=== PATIENT | female | born 1960 | race Caucasian/White ===

== ENCOUNTER 2019-07-13 10:16 | Emergency (ER) | payer OTHER, SELFPAY ==
[2019-07-13] VITALS (7 sets, daily range): BP systolic 115–158; BP diastolic 66–90; PULSE 53–62; RESP 11–16; TEMP 36.4; O2SAT 96–100; BMI 25.1
--- NOTE | 2019-07-13 10:39 | ED.NEUROSD ---
HPI - Neuro Symptoms/Deficit General Chief Complaint: Neuro Symptoms/Deficit Stated Complaint: headache/numbness rt fingers/dizzy/nausea x14 days Time Seen by Provider: 07/13/19 10:20 Source: patient Mode of arrival: Ambulatory Limitations: no limitations History of Present Illness HPI Narrative: 58F nonsmoker with history of hypothyroid presents with a chief complaint of 14 days of episodes of dizziness without any apparent provocation or palliation. She states her dizziness is more a sense that she is unsteady and with ambulation she feels like she is walking with a list. Additions the patient has some discomfort in the right side of her neck and occasional episodes of tingling in her 4th and 5th fingers. She denies any injury. She has had no fever chills and denies other neurologic symptoms such as blurred vision weakness or trouble with speech. 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 She states this feels different than her typical vertigo. She denies any recent illness such as runny nose, sneezing or cough. She denies any recent air travel or diving. Onset (ago): week(s) Location: ataxia History of same: No Severity: mild Quality: intermittent Relieving factors: none Exacerbating factors: none On Anticoagulants: No Treatments Prior to Arrival: none Related Data Home Medications Medication Instructions Recorded Confirmed levothyroxine 50 mcg PO DAILY 07/13/19 07/13/19 Allergies Allergy/AdvReac Type Severity Reaction Status Date / Time oxycodone Allergy Unknown Verified 07/13/19 12:24 Review of Systems Constitutional Constitutional: Denies chills, Denies fatigue, Denies fever(s), Denies frequent falls, Denies lethargy and Denies weakness Eyes Eyes: Denies change in vision, Denies eye discharge, Denies irritation and Denies loss of vision ENT Ears, Nose, Mouth, and Throat: Denies change in voice, Reports dizziness, Denies neck pain, Denies sore throat and Denies throat swelling Cardiovascular Cardiovascular: Denies chest pain, Denies irregular heart rhythm, Denies lightheadedness, Denies palpitations, Denies dyspnea, Denies dyspnea on exertion and Denies orthopnea Respiratory Respiratory: Denies cough, Denies dyspnea, Denies dyspnea on exertion and Denies wheezing Gastrointestinal Gastrointestinal: Denies abdominal pain, Denies change in bowel habits, Denies diarrhea, Denies nausea and Denies vomiting Genitourinary Genitourinary: Denies hematuria, Denies flank pain, Denies urinary incontinence and Denies urinary urgency Musculoskeletal Musculoskeletal: Denies back pain, Denies muscle weakness, Denies neck pain, Denies numbness and Denies tingling Integumentary/Breasts Skin/Breast: Denies pruritus, Denies erythema, Denies rash and Denies wounds Neurologic Neurologic: Denies behavioral changes, Denies confusion, Reports dizziness, Denies frequent falls, Denies loss of vision, Denies numbness, Denies tingling and Denies weakness Psychiatric Psychiatric: Denies anxiety, Denies behavioral changes, Denies confusion, Denies depression, Denies homicidal ideation and Denies suicidal ideation Endocrine Endocrine: Denies fatigue, Denies flushing and Denies palpitations Hematologic/Lymphatic Hematologic/Lymphatic: Denies easy bruising Allergic/Immunologic Allergic/Immunologic: Denies urticaria, Denies throat swelling and Denies wheezing PFSH Social History Smoking Status: Never smoker Social History Smoking Status: Never smoker Exam Narrative Exam Narrative: GENERAL: [58] year old patient appears stated age. Well-nourished, well-developed patient, in mild distress. Anxious HEAD: Atraumatic. Normocephalic. No nystagmus noted EYES: Pupils equal round and reactive. Extraocular motions intact. No scleral icterus. No injection or drainage. ENT: Nose without bleeding, purulent drainage. Throat without erythema, tonsillar hypertrophy or exudate. Airway patent. NECK: Trachea midline. Non tender CARDIOVASCULAR: Regular rate and rhythm without murmurs, gallops, or rubs. RESPIRATORY: Clear to auscultation. Breath sounds equal bilaterally. No wheezes, rales, or rhonchi. GASTROINTESTINAL: Abdomen soft, non-tender, nondistended. EXTREMITIES: No edema or joint tenderness. BACK: Nontender without deformity or crepitance. No flank tenderness. NEURO: AOx3. SKIN: No rash or erythema of visible areas NIH Stroke Scale 1a. LOC: Patient is alert and keenly responsive (0) 1b. LOC Questions: Patient answers both LOC questions accurately (0) 1c. LOC Commands: Patient performs both tasks correctly (0) 2. Best Gaze: Normal (0) 3. Visual: No visual loss (0) 4. Facial palsy: Normal symmetrical movements (0) 5. Motor arm: No drift (0) 6. Motor leg: No drift (0) 7. Limb ataxia: Absent (0) 8. Sensory: Normal (0) 9. Best language: No aphasia; normal (0) 10. Dysarthria: Normal (0) 11. Extinction and inattention: No abnormality (0) NIHSS: 0 Initial Vital Signs Initial Vital Signs: Vital Signs Temperature 97.6 F 07/13/19 10:20 Pulse Rate 60 07/13/19 10:20 Respiratory Rate 16 07/13/19 10:20 Blood Pressure 158/90 H 07/13/19 10:20 Pulse Oximetry 99 07/13/19 10:20 Course Orders Ordered: ED Orders 07/13/19 10:50 Basic Metabolic Panel Stat Complete Blood Count AUTO DIFF Stat Partial Thromboplastin Time Stat Prothrombin Time INR Stat Troponin & CK Cardiac Panel Stat 07/13/19 11:06 CT angio head and neck Stat 07/13/19 13:27 MR head/brain wo con Stat 07/13/19 14:56 Urine Culture Stat Urine Drug Screen, Rapid Stat Urine Microscopic Stat Discontinued Medications Sodium Chloride (Normal Saline 0.9%) 1,000 mls @ 150 mls/hr IV CONT BRITTANY Last Infusion: 07/13/19 16:20 Dose: 0 mls/hr Documented by: Admin: 07/13/19 11:25 Dose: 150 mls/hr Documented by: MALIK Lorazepam (Ativan) 1 mg IV NOW ONE Stop: 07/13/19 13:47 Last Admin: 07/13/19 13:49 Dose: 1 mg Documented by: MALIK Ondansetron HCl (Zofran) 4 mg IV NOW ONE Stop: 07/13/19 11:21 Last Admin: 07/13/19 11:25 Dose: 4 mg Documented by: MALIK Ondansetron HCl (Zofran) 4 mg IV NOW ONE Stop: 07/13/19 13:40 Last Admin: 07/13/19 13:43 Dose: 4 mg Documented by: MALIK Consultations Consultation #1: call to [facility] Stroke Neurology. Recommend MRI of brain and if no findings then DC with out patient followup Vital Signs Vital signs: Vital Signs - 8 hr 07/13/19 11:35 07/13/19 11:52 07/13/19 13:40 Pulse Rate 53 L 62 54 L Respiratory Rate 11 L 16 13 Blood Pressure [Right Arm] 148/88 H 125/88 Pulse Oximetry 98 98 100 07/13/19 15:00 07/13/19 15:30 07/13/19 16:00 Pulse Rate 57 L 53 L 53 L Respiratory Rate 16 16 Blood Pressure [Right Arm] 131/66 122/75 115/74 Pulse Oximetry 96 97 97 MDM - Neuro Symptoms/Deficit Lab Data Result diagrams: 07/13/19 10:50 07/13/19 10:50 Labs: Lab Results 07/13/19 07/13/19 07/13/19 Range/Units 10:50 10:50 10:50 WBC 6.3 (4.5-11.0) X10^3/uL RBC 4.44 (4.0-5.2) X10^6/uL Hgb 14.6 (12.0-16.0) g/dL Hct 42.4 (36-46) % MCV 95.5 (80-100) fL MCH 32.8 (26-34) PG MCHC 34.4 (30-36) % RDW 12.8 (11.6-14.8) % Plt Count 222 (150-400) X10^3/uL Neut % (Auto) 75.8 H (50-75) % Lymph % (Auto) 13.2 L (25-40) % [place] % (Auto) 5.4 (3-14) % Eos % (Auto) 4.6 H (2-4) % Baso % (Auto) 1.0 (0-2) % Neut # (Auto) 4800 (1610-8877) /uL Lymph # (Auto) 800 L (9752-6148) /uL [place] # (Auto) 300 (0-900) /uL Eos # (Auto) 300 (0-450) /uL Baso # (Auto) 100 (0-100) /uL PT 10.8 (10.1-12.7) SECONDS INR 0.9 (0.9-1.3) APTT 42 H (26.4-36.2) SECONDS Sodium 141 (137-145) mmol/L Potassium 3.9 (3.4-5.1) mmol/L Chloride 102 (98-107) mmol/L Carbon Dioxide 28 (22-32) mmol/L BUN 16 (7-17) mg/dL Creatinine 0.60 (0.52-1.04) mg/dL Estimated GFR > 60.0 (>60) mL/min BUN/Creatinine Ratio 26.7 H (6-22) Glucose 114 H (70-100) mg/dL Calcium 9.7 (8.4-10.2) mg/dL Total Creatine Kinase (30-135) U/L CK-MB (CK-2) CK-MB (CK-2) Rel Index Troponin I (0.01-0.034) ng/mL Urine RBC (0-5/HPF) Urine WBC (0-5/HPF) Ur Squamous Epith Cells (0-5/HPF) Ur Transition Epith Cell (0-5/HPF) Urine Bacteria (None) Ur Culture Indicated? U Morph 300 ng/mL cutoff (Negative) Ur Oxycodone Screen (Negative) Urine Methadone Screen (Negative) Ur Barbiturates Screen (Negative) U Tricyclic Antidepress (Negative) Ur Phencyclidine Scrn (Negative) Ur Amphetamines Screen (Negative) U Methamphetamines Scrn (Negative) Ur MDMA Scrn (Ecstasy) (Negative) U Benzodiazepines Scrn (Negative) Urine Cocaine Screen (Negative) U Marijuana (THC) Screen (Negative) 07/13/19 07/13/19 07/13/19 Range/Units 10:50 14:56 14:56 WBC (4.5-11.0) X10^3/uL RBC (4.0-5.2) X10^6/uL Hgb (12.0-16.0) g/dL Hct (36-46) % MCV (80-100) fL MCH (26-34) PG MCHC (30-36) % RDW (11.6-14.8) % Plt Count (150-400) X10^3/uL Neut % (Auto) (50-75) % Lymph % (Auto) (25-40) % [place] % (Auto) (3-14) % Eos % (Auto) (2-4) % Baso % (Auto) (0-2) % Neut # (Auto) (4562-0603) /uL Lymph # (Auto) (8507-5307) /uL [place] # (Auto) (0-900) /uL Eos # (Auto) (0-450) /uL Baso # (Auto) (0-100) /uL PT (10.1-12.7) SECONDS INR (0.9-1.3) APTT (26.4-36.2) SECONDS Sodium (137-145) mmol/L Potassium (3.4-5.1) mmol/L Chloride (98-107) mmol/L Carbon Dioxide (22-32) mmol/L BUN (7-17) mg/dL Creatinine (0.52-1.04) mg/dL Estimated GFR (>60) mL/min BUN/Creatinine Ratio (6-22) Glucose (70-100) mg/dL Calcium (8.4-10.2) mg/dL Total Creatine Kinase 61 (30-135) U/L CK-MB (CK-2) TNP CK-MB (CK-2) Rel Index TNP Troponin I < 0.012 (0.01-0.034) ng/mL Urine RBC 0-1/hpf (0-5/HPF) Urine WBC 5-10/hpf H (0-5/HPF) Ur Squamous Epith Cells 0-1 /hpf (0-5/HPF) Ur Transition Epith Cell 0-1/hpf (0-5/HPF) Urine Bacteria Occasional (0-1) (None) Ur Culture Indicated? Specimen cultured U Morph 300 ng/mL cutoff Negative (Negative) Ur Oxycodone Screen Negative (Negative) Urine Methadone Screen Negative (Negative) Ur Barbiturates Screen Negative (Negative) U Tricyclic Antidepress Negative (Negative) Ur Phencyclidine Scrn Negative (Negative) Ur Amphetamines Screen Negative (Negative) U Methamphetamines Scrn Negative (Negative) Ur MDMA Scrn (Ecstasy) Negative (Negative) U Benzodiazepines Scrn Negative (Negative) Urine Cocaine Screen Negative (Negative) U Marijuana (THC) Screen Negative (Negative) Urine Dip Bedside Urine Glucose Negative Bedside Urine Bilirubin - Negative Bedside Urine Ketone - Negative Urine Specific [place] 1.010 Bedside Urine Occult Blood + Bedside Urine pH 5.5 Bedside Urine Protein - Negative Bedside Urine Urobilinogen - Negative Bedside Urine Nitrite - Negative Bedside Urine Leukocytes +/- 15 Esterase Imaging Data MRI - head: Radiologist's impression: [address] [address] Magnetic Resonance Report Signed Patient: Lianna Pierre R#: [id number] : 1960Acct:[id number] Age/Sex: 58 / FDate of Service: 07/13/19 Loc: ED Accession Number: [id number] Procedure: MR head/brain wo con Ordering Provider: Hayden Tanner D.O. PROCEDURE: MR HEAD/BRAIN WO CON INDICATIONS: dizziness, request per neuro TECHNIQUE: Noncontrast axial T1 spin echo, axial T2 fast spin echo, sagittal and axial FLAIR, coronal T2 fast spin echo, axial gradient echo, axial diffusion and ADC through the brain. COMPARISON: [facility], CT, CT ANGIO HEAD AND NECK, 07/13/2019, 11:02. FINDINGS: Image quality: Excellent. CSF Spaces: Basal cisterns are patent. No extra-axial fluid collections. Ventricles are normal in size and shape. Brain: No intracranial masses or hemorrhage. Garay/white matter interface is normal. Brainstem appears normal. There is a small focus of T2 hyperintensity in the posterior left periventricular white matter, nonspecific. Diffusion-weighted images demonstrate no acute ischemic insult. No chronic ischemic insults. Normal intravascular flow voids are present. Skull and face: Calvarium has normal marrow signal. Orbits appear normal. Sinuses: Sinuses and mastoids are clear. IMPRESSION: 1. No acute intracranial abnormalities. Dictated by: Mason Sanders M.D. on 07/13/2019 at 14:38 Approved by: Mason Sanders M.D. on 07/13/2019 at 14:[address] [address] [address] Scan Report Signed Patient: Lianna Pierre JMR#: [id number] : 1960Acct:[id number] Age/Sex: 58 / FDate of Service: 07/13/19 Loc: ED Accession Number: [id number] Procedure: CT angio head and neck Ordering Provider: Hayden Tanner D.O. PROCEDURE: CT ANGIO HEAD AND NECK INDICATIONS: head/neck pain, neuro symptoms TECHNIQUE: Pre-contrast 4.5 mm thick sections acquired from the foramen magnum to the vertex. After the administration of intravenous contrast, 1 mm thick sections acquired from the aortic arch through the [place] of [place]. Post-contrast 4.5 mm thick sections then re-acquired from the foramen magnum to the vertex. 3-dimensional hnazuki-oxxekpahk-judnzftdfx (MIP) and/or volume rendering reformats were acquired of the central intracranial vasculature and neck separately. COMPARISON: None. FINDINGS: Image quality: Excellent. BRAIN: CSF spaces: Ventricles are normal in size and shape. Basal cisterns are patent. No extra-axial fluid collections. Brain: No midline shift. No intracranial bleeds or masses. Garay-white matter interface appears intact. Skull and face: Calvarium and facial bones appear intact, without suspicious lesions. Orbits appear normal. Sinuses: Sinuses and mastoids are clear. HEAD CT ANGIOGRAPHY: Anterior circulation: Intracranial internal carotid arteries are normal in flow. Atherosclerotic calcifications are noted in the cavernous and supraclinoid segments of the internal carotid arteries bilaterally which causes mild to moderate stenoses. The flow within the paired anterior cerebral arteries is normal and symmetric. The flow within the middle cerebral arteries is normal and symmetric. The anterior communicating artery is seen. No aneurysms are seen. Posterior circulation: Visualized portions of the vertebral arteries demonstrate normal caliber, and join to form a normal appearing basilar artery. Flow within the posterior cerebral arteries is normal and symmetric. No aneurysms are seen. NECK CT ANGIOGRAPHY: Carotid system: The great vessels demonstrate a conventional anatomy as they arise from the aortic arch. The origins of the common carotid arteries appear patent. The common carotid arteries demonstrate normal caliber and courses. The bifurcation regions are both widely patent. The internal carotid arteries demonstrate normal calibers and courses. Posterior circulation: The origins of the vertebral arteries both appear widely patent. The more superior extracranial portions of both vertebral arteries also demonstrate normal courses and calibers. They join to form a normal appearing basilar artery. Soft tissues: Visualized neck soft tissues demonstrate no suspicious abnormalities. Bones: No suspicious bony lesions. Visualized cervical spine appears normally aligned. IMPRESSION: 1. No acute intracranial disease process. 2. No large vessel occlusion, vascular dissection or aneurysm. 3. Atherosclerotic calcification involving the cavernous and supraclinoid segments of the intracranial internal carotid arteries bilaterally which causes mild to moderate stenoses. Any quantitative measurements of stenosis were performed using NASCET criteria. Dictated by: Katina Collins MD, PhD on 07/13/2019 at 10:53 Approved by: Katina Collins MD, PhD on 07/13/2019 at 11:23 [facility] Narrative Medical decision making narrative: 58-year-old female with 2 weeks of off and on episodes of dizziness in the absence of much in the way of other symptoms, complains of vague dizziness without provocation or palliation with normal CT angiogram an unremarkable MRI. I have added discussion with the stroke neurologist at [facility] is shares the opinion that at this point she is safe for discharge with follow-up and return precautions. The patient understands the plan as in complete agreement. She has had her questions answered to her apparent satisfaction and understands return precautions. Discharge Plan Departure Patient Disposition: Home Clinical Impression: Dizziness Discharge Date/Time: 07/13/19 16:24 Instructions: DI for Dizziness-Nonvertigo Activity Restrictions/Additional Instructions: *You have been diagnosed with [dizziness, stroke, dissection other ominous diagnoses were considered and ruled out.] *What to do: *Take medications as directed *Follow up with your primary care provider in 2-3 days, call for an appointment. Let them know you were seen in the Emergency Department and that we ask that you be seen in follow up *Return to ER if you should have any new, worsening or concerning symptoms Prescriptions: No Action levothyroxine 50 mcg Tablet 50 mcg PO DAILY RF: 0 Referrals: Brendon Naidu MD [Physician] - Rod Wang MD [Primary Care Provider] -
[2019-07-13 11:00] LABS: Add Manual Diff / Slide Review NO; Basophils Absolute Auto 100 /uL (0-100); Eosinophils Absolute Auto 300 /uL (0-450); Eosinophils Percent Auto 4.6 % (2-4); Hematocrit 42.4 % (36-46); Hemoglobin 14.6 g/dL (12.0-16.0); Lymphocytes Absolute Auto 800 /uL (1100-4500); Lymphocytes Percent Auto 13.2 % (25-40); Mean Corpuscular HGB Conc 34.4 % (30-36); Mean Corpuscular Hemoglobin 32.8 PG (26-34); Mean Corpuscular Volume 95.5 fL (80-100); Monocytes Absolute Auto 300 /uL (0-900); Monocytes Percent Auto 5.4 % (3-14); Neutrophils Absolute Auto 4800 /uL (1500-7000); Neutrophils Percent Auto 75.8 % (50-75); Platelet Count 222 X10^3/uL (150-400); Red Blood Cell Count 4.44 X10^6/uL (4.0-5.2); Red Cell Distribution Width 12.8 % (11.6-14.8); White Blood Cell Count 6.3 X10^3/uL (4.5-11.0)
--- NOTE | 2019-07-13 11:06 | DI.CT.S_ITS ---
PROCEDURE: CT ANGIO HEAD AND NECK INDICATIONS: head/neck pain, neuro symptoms TECHNIQUE: Pre-contrast 4.5 mm thick sections acquired from the foramen magnum to the vertex. After the administration of intravenous contrast, 1 mm thick sections acquired from the aortic arch through the [place] of [place]. Post-contrast 4.5 mm thick sections then re-acquired from the foramen magnum to the vertex. 3-dimensional oywbouh-dajlexxqr-sthfrsavvx (MIP) and/or volume rendering reformats were acquired of the central intracranial vasculature and neck separately. COMPARISON: None. FINDINGS: Image quality: Excellent. BRAIN: CSF spaces: Ventricles are normal in size and shape. Basal cisterns are patent. No extra-axial fluid collections. Brain: No midline shift. No intracranial bleeds or masses. Garay-white matter interface appears intact. Skull and face: Calvarium and facial bones appear intact, without suspicious lesions. Orbits appear normal. Sinuses: Sinuses and mastoids are clear. HEAD CT ANGIOGRAPHY: Anterior circulation: Intracranial internal carotid arteries are normal in flow. Atherosclerotic calcifications are noted in the cavernous and supraclinoid segments of the internal carotid arteries bilaterally which causes mild to moderate stenoses. The flow within the paired anterior cerebral arteries is normal and symmetric. The flow within the middle cerebral arteries is normal and symmetric. The anterior communicating artery is seen. No aneurysms are seen. Posterior circulation: Visualized portions of the vertebral arteries demonstrate normal caliber, and join to form a normal appearing basilar artery. Flow within the posterior cerebral arteries is normal and symmetric. No aneurysms are seen. NECK CT ANGIOGRAPHY: Carotid system: The great vessels demonstrate a conventional anatomy as they arise from the aortic arch. The origins of the common carotid arteries appear patent. The common carotid arteries demonstrate normal caliber and courses. The bifurcation regions are both widely patent. The internal carotid arteries demonstrate normal calibers and courses. Posterior circulation: The origins of the vertebral arteries both appear widely patent. The more superior extracranial portions of both vertebral arteries also demonstrate normal courses and calibers. They join to form a normal appearing basilar artery. Soft tissues: Visualized neck soft tissues demonstrate no suspicious abnormalities. Bones: No suspicious bony lesions. Visualized cervical spine appears normally aligned. IMPRESSION: 1. No acute intracranial disease process. 2. No large vessel occlusion, vascular dissection or aneurysm. 3. Atherosclerotic calcification involving the cavernous and supraclinoid segments of the intracranial internal carotid arteries bilaterally which causes mild to moderate stenoses. Any quantitative measurements of stenosis were performed using NASCET criteria. Dictated by: Katina Collins MD, PhD on 07/13/2019 at 10:53 Approved by: Katina Collnis MD, PhD on 07/13/2019 at 11:23
[2019-07-13 11:08] LABS: INR 0.9 (0.9-1.3); Prothrombin Time 10.8 SECONDS (10.1-12.7)
[2019-07-13 11:11] LABS: PTT Partial Thromboplastin Tim 42 SECONDS (26.4-36.2)
[2019-07-13 11:14] LABS: BUN Creatinine Ratio 26.7 (6-22); Blood Urea Nitrogen 16 mg/dL (7-17); Calcium 9.7 mg/dL (8.4-10.2); Carbon Dioxide 28 mmol/L (22-32); Chloride 102 mmol/L (98-107); Estimated Glomerular Filt Rate > 60.0 mL/min (>60); Glucose 114 mg/dL (70-100); HEMOLYSIS < 15 (0-50); Potassium 3.9 mmol/L (3.4-5.1); Sodium 141 mmol/L (137-145)
[2019-07-13] MEDS: SODIUM CHLORIDE 0.9% 1,000 ML 150 ML IV (11:25)
[2019-07-13] MEDS: ONDANSETRON 4 MG/2 ML INJ IV ×2 (11:25→13:43)
[2019-07-13 12:55] LABS: Creatine Kinase 61 U/L (30-135)
[2019-07-13 13:08] LABS: Troponin I < 0.012 ng/mL (0.01-0.034)
--- NOTE | 2019-07-13 13:27 | DI.MRI.S_ITS ---
PROCEDURE: MR HEAD/BRAIN WO CON INDICATIONS: dizziness, request per neuro TECHNIQUE: Noncontrast axial T1 spin echo, axial T2 fast spin echo, sagittal and axial FLAIR, coronal T2 fast spin echo, axial gradient echo, axial diffusion and ADC through the brain. COMPARISON: [facility], CT, CT ANGIO HEAD AND NECK, 07/13/2019, 11:02. FINDINGS: Image quality: Excellent. CSF Spaces: Basal cisterns are patent. No extra-axial fluid collections. Ventricles are normal in size and shape. Brain: No intracranial masses or hemorrhage. Garay/white matter interface is normal. Brainstem appears normal. There is a small focus of T2 hyperintensity in the posterior left periventricular white matter, nonspecific. Diffusion-weighted images demonstrate no acute ischemic insult. No chronic ischemic insults. Normal intravascular flow voids are present. Skull and face: Calvarium has normal marrow signal. Orbits appear normal. Sinuses: Sinuses and mastoids are clear. IMPRESSION: 1. No acute intracranial abnormalities. Dictated by: Mason Sanders M.D. on 07/13/2019 at 14:38 Approved by: Mason Sanders M.D. on 07/13/2019 at 14:42
[2019-07-13] MEDS: LORazepam 2 MG/ML INJ 1 MG IV (13:49)
[2019-07-13 15:02] LABS: UR Morphine/Opiate cutoff 300 Negative (Negative); Ur Creatinine Normal (Normal); Ur Specific Gravity Normal (Normal); Urine Amphetamines Negative (Negative); Urine Barbiturates Negative (Negative); Urine Benzodiazepines Negative (Negative); Urine Cocaine Negative (Negative); Urine MDMA Negative (Negative); Urine Methadone Negative (Negative); Urine Methamphetamines Negative (Negative); Urine Oxycodone Negative (Negative); Urine Phencyclidine Negative (Negative); Urine Tetrahydrocannabinol Negative (Negative); Urine Tricyclic Antidepressant Negative (Negative); Urine pH Normal (Normal)
[2019-07-13 15:04] LABS: Bacteria Urine Occasional (0-1); Culture Indicated Urine Specimen Cultured; RBC Urine 0-1/HPF (0-5/HPF); Squamous Epithelial Cell Urine 0-1 /HPF (0-5/HPF); Transitional Epi Cells Urine 0-1/HPF (0-5/HPF); WBC Urine 5-10/HPF (0-5/HPF)
== END 2019-07-13 16:24 | disposition home or self-care (01) ==
PROVIDERS: Emergency Provider Emergency Medicine; PCP Internal Medicine
DX: R42 Dizziness and giddiness (principal); M54.2 Cervicalgia; R51 Headache; R07.9 Chest pain, unspecified
CPT/HCPCS: 70496; 70498; 70551; 80048; 80305; 81003; 81015; 82550; 84484; 85025; 85610; 85730; 87086; 93005; 96361; 96374; 96375; 96376; 99284; 99285; J2060; J2405; Q9967

== ENCOUNTER 2019-10-27 16:45 | Outpatient (RCR) | payer OTHER, SELFPAY ==
--- NOTE | 2019-10-13 17:30 | PT.OIE ---
Current Diagnoses Benign paroxysmal vertigo, left ear (10/13/19) Dizziness and giddiness (10/13/19) Visit Care Team Role Provider Type Rod Wang MD Primary Care Provider Physician Specialty: Internal Medicine Address: [address] [place] [address], [id number] Email: [email or web address] Brendon Naidu MD Attending Provider Physician Specialty: Ear, Nose, Throat Address: [address] [place] [address], [id number] Email: [email or web address] Initial Evaluation PT-OP-A Visit Information Start: 10/14/19 11:46 Freq: Status: Active Protocol: Document 10/13/19 16:55 DCW (Rec: 10/14/19 17:55 DCW [id number]) Out-Patient Physical Therapy Visit Information Visit Information Visit Type Initial Evaluation Visit Start Time 16:55 Visit Stop Time 17:45 Total Visit Minutes 50 Visit Number 1 Number of C S S REPRESENTATIVE Visits 0 Evaluation Information Evaluation Date 10/13/19 PT-OP-B Current Condition Start: 10/14/19 11:46 Freq: Status: Active Protocol: Document 10/13/19 16:55 DCW (Rec: 10/14/19 17:55 DCW [id number]) Current Condition History of Current Condition Onset Date one year Current Complaints Position-dependent vertigo History of Current Condition Pt is a 59 year old female complaining of a 11 year history of motion-induced vertigo. Pt notes that she has had a long-standing history of recurrent BPPV, which she has had treated previously, but notes that this feels different and that her self- Manpreet has not been effective. Pt reports episodes last a few seconds. Pt reports she has been diagnosed with a vestibular migraine, but denies a significant migraine history. Symptoms are provoked by changing positions. Pt denies recent hearing changes, tinnitus, diplopia, dysarthria, discoordination, or decreased mentation/ consciousness. Pt reports symptoms are waxing/waning in nature. Treatment Goals Patient/Caregiver Goals Pt would like to eliminate positional dizziness, and learn how to treat/prevent the return of her symptoms if possible PT-OP-C Subjective Start: 10/14/19 11:46 Freq: Status: Active Protocol: Document 10/13/19 16:55 DCW (Rec: 10/14/19 17:55 DC [id number]) OP-PT Subjective Patient Comments Patient Comments Over the last year, the symptoms have been slightly different. The episodes seem to last longer before going away, and I've had an increase in neck pain, but the symptoms still depend on my position changing. It has gotten better over the last month since I saw Dr Naidu. Patient Reported Progress Improving Patient Questionnaires Dizziness Handicap Inventory DHI Score 64% DHI Functional Impairment 60 to 79% Impaired (Score 60- 79) OP-PT Pain Assessment Pain Assessment Grid Paper Pain Assessment Grid Completed No PT-OP-O Vestibular Start: 10/14/19 11:46 Freq: Status: Active Protocol: Document 10/13/19 16:55 DCW (Rec: 10/14/19 17:55 DC [id number]) Vestibular Assessment Positional Testing Geovanna-Hallpike Positive Left,Negative Right, Upbeating,< 60 Seconds Comments Vestibular Comments During left Geovanna-Hallpike test, pt complained of vertigo and demonstrated up-beating, torsional nystagmus lasting approximately 5 seconds. PT-OP-Q Treatments Start: 10/14/19 11:46 Freq: Status: Active Protocol: Document 10/13/19 16:55 DCW (Rec: 10/14/19 17:55 DC [id number]) Self-Care/Home Management Treatment Education Patient Education Home Exercise Program,Safety Other Education Pt was educated on BPPV, expectations for treatment, and possible recurrence (BPPV has a ~50% recurrence rate in the five years following treatment). Canalithic Repositioning BPPV Treatment Manpreet Affected Canal(s) Left Posterior Comments Pt complained of symptoms in the first and third position. PT-OP-T Assessment and Plan Start: 10/14/19 11:46 Freq: Status: Active Protocol: Document 10/13/19 16:55 DCW (Rec: 10/14/19 17:55 DC [id number]) Physical Therapy Assessment Rehab Potential Rehabilitation Potential Excellent Evaluation Complexity Number of Personal Factors/Comorbidities 0 Number of Body Systems Impaired 1-2 Clinical Presentation at Evaluation Stable Impairments Impairments Balance,Vestibular Goals Three Impairment Pt has vertigo with changing of position in bed Short Term Goal (STG) Pt to be able to perform bed mobility with no instances of dizziness. STG Duration 10/27/19 Two Impairment Positive L [place]-Hallpike Short Term Goal (STG) Pt to have a negative [place]- Hallpike bilaterally STG Duration 10/27/19 One Impairment Pt unable to perform proper self-Manpreet Short Term Goal (STG) Pt to demonstrate knowledge of correct performence of self- Manpreet maneuver STG Duration 10/27/19 Assessment Summary Assessment Due to a number of factors, including a late start to the evaluation due to pt completing paperwork, pt's recent completely clean brain MRI, her long-standing history of BPPV, and her potentially positive L Hallpike test at her appointment with Dr Naidu , an extended vestibular assessment was not performed, and positional testing was performed. During left [place]- Hallpike test, pt complained of vertigo and demonstrated up -beating, torsional nystagmus lasting approximately 5 seconds, consistent with diagnosis of left-sided posterior canal BPPV, canalithiasis-type. Pt was treated with a left-sided Manpreet maneuver. Pt complained of symptoms in the first and third position, which is normally indicative of a successful treatment. Further positional testing was negative. Pt was educated on BPPV, expectations for treatment, possible recurrence (BPPV has a ~50% recurrence rate in the five years following treatment), and post -Manpreet restrictions. Pt to return in ~1 week for a follow -up appointment, and intermittently afterward as indicated for treatment of BPPV. If treatment does not eliminate pt's symptoms, if symptoms change, or if pt has any other questions, further assessment should be performed . Pt's symptoms are not particularly suggestive at this time of vestibular migraine. Additionally, pt's description of the self-Manpreet maneuver she was performing was inconsistent with a proper Manpreet maneuver, and sounded much more like she was performing a Geovanna-Hallpike test on herself, which would explain why her treatment was ineffective. Physical Therapy Plan Frequency and Duration Frequency of Treatment 1x/Week Duration of Treatment 6 weeks Plan of Care Start Date 10/13/19 Plan of Care End Date 11/24/19 Therapeutic Interventions Therapeutic Interventions Balance Training,Canalithic Repositioning,Vestibular Rehabilitation Next Visit Focus/Plan Next Note Type Treatment Note Next Visit Plan Positional testing, CRM as needed, further vestibular testing as indicated.
--- NOTE | 2019-10-13 17:30 | PT.OPPOC ---
Physical, Occupational & Speech Therapy At [facility] Current Diagnoses Benign paroxysmal vertigo, left ear (10/13/19) Dizziness and giddiness (10/13/19) Visit Care Team Role Provider Type Rod Wang MD Primary Care Provider Physician Specialty: Internal Medicine Address: [address] [place] [address], [address] Email: [email or web address] Brendon Naidu MD Attending Provider Physician Specialty: Ear, Nose, Throat Address: [address] [place] [address], [facility] Email: [email or web address] Plan Of [email or web address] PT-OP-T Assessment and Plan Start: 10/14/19 11:46 Freq: Status: Active Protocol: Document 10/13/19 16:55 DCW (Rec: 10/14/19 17:55 DCW [id number]) Physical Therapy Assessment Rehab Potential Rehabilitation Potential Excellent Evaluation Complexity Number of Personal Factors/Comorbidities 0 Number of Body Systems Impaired 1-2 Clinical Presentation at Evaluation Stable Impairments Impairments Balance,Vestibular Goals Three Impairment Pt has vertigo with changing of position in bed Short Term Goal (STG) Pt to be able to perform bed mobility with no instances of dizziness. STG Duration 10/27/19 Two Impairment Positive L [place]-Hallpike Short Term Goal (STG) Pt to have a negative [place]- Hallpike bilaterally STG Duration 10/27/19 One Impairment Pt unable to perform proper self-Manpreet Short Term Goal (STG) Pt to demonstrate knowledge of correct performence of self- Manpreet maneuver STG Duration 10/27/19 Assessment Summary Assessment Due to a number of factors, including a late start to the evaluation due to pt completing paperwork, pt's recent completely clean brain MRI, her long-standing history of BPPV, and her potentially positive L Hallpike test at her appointment with Dr Naidu , an extended vestibular assessment was not performed, and positional testing was performed. During left [place]- Hallpike test, pt complained of vertigo and demonstrated up -beating, torsional nystagmus lasting approximately 5 seconds, consistent with diagnosis of left-sided posterior canal BPPV, canalithiasis-type. Pt was treated with a left-sided Mn[place]reet maneuver. Pt complained of symptoms in the first and third position, which is normally indicative of a successful treatment. Further positional testing was negative. Pt was educated on BPPV, expectations for treatment, possible recurrence (BPPV has a ~50% recurrence rate in the five years following treatment), and post -Manpreet restrictions. Pt to return in ~1 week for a follow -up appointment, and intermittently afterward as indicated for treatment of BPPV. If treatment does not eliminate pt's symptoms, if symptoms change, or if pt has any other questions, further assessment should be performed . Pt's symptoms are not particularly suggestive at this time of vestibular migraine. Additionally, pt's description of the self-Manpreet maneuver she was performing was inconsistent with a proper Manpreet maneuver, and sounded much more like she was performing a [place]-Hallpike test on herself, which would explain why her treatment was ineffective. Physical Therapy Plan Frequency and Duration Frequency of Treatment 1x/Week Duration of Treatment 6 weeks Plan of Care Start Date 10/13/19 Plan of Care End Date 11/24/19 Therapeutic Interventions Therapeutic Interventions Balance Training,Canalithic Repositioning,Vestibular Rehabilitation Next Visit Focus/Plan Next Note Type Treatment Note Next Visit Plan Positional testing, CRM as needed, further vestibular testing as indicated. Plan of Care Dates Plan of Care Start Date 10/13/19 Plan of Care End Date 11/24/19 Electronically Signed by: Faizan Davies, PT 10/14/19 0997 Please Sign and Return: I have reviewed this Plan of Care and certify that the skilled therapy services above are required to meet the patient?s needs. Physician Signature Date Printed Name and Credentials Clinical Instructor Signature Printed Name and Credentials
--- NOTE | 2019-10-27 17:00 | PT.OTN ---
Current Diagnoses Benign paroxysmal vertigo, left ear (10/27/19) Dizziness and giddiness (10/27/19) Physical Therapy Treatment Note PT-OP-A Visit Information Start: 10/14/19 11:46 Freq: Status: Active Protocol: Document 10/27/19 16:45 DCW (Rec: 10/27/19 16:59 DCW [id number]) Out-Patient Physical Therapy Visit Information Visit Information Visit Type Treatment Note Visit Start Time 16:45 Visit Stop Time 16:55 Total Visit Minutes 10 Visit Number 2 Number of EXPLORATION GEOLOGIST Visits 0 Evaluation Information Evaluation Date 10/13/19 PT-OP-B Current Condition Start: 10/14/19 11:46 Freq: Status: Active Protocol: Document 10/13/19 16:55 DCW (Rec: 10/14/19 17:55 DCW [id number]) Current Condition History of Current Condition Onset Date one year Current Complaints Position-dependent vertigo History of Current Condition Pt is a 59 year old female complaining of a 11 year history of motion-induced vertigo. Pt notes that she has had a long-standing history of recurrent BPPV, which she has had treated previously, but notes that this feels different and that her self- Yomi has not been effective. Pt reports episodes last a few seconds. Pt reports she has been diagnosed with a vestibular migraine, but denies a significant migraine history. Symptoms are provoked by changing positions. Pt denies recent hearing changes, tinnitus, diplopia, dysarthria, discoordination, or decreased mentation/ consciousness. Pt reports symptoms are waxing/waning in nature. Treatment Goals Patient/Caregiver Goals Pt would like to eliminate positional dizziness, and learn how to treat/prevent the return of her symptoms if possible PT-OP-C Subjective Start: 10/14/19 11:46 Freq: Status: Active Protocol: Document 10/27/19 16:45 DCW (Rec: 10/27/19 16:59 DCW [id number]) OP-PT Subjective Patient Comments Patient Comments I haven't been dizzy since I was here last time. Not even a little bit. PT-OP-O Vestibular Start: 10/14/19 11:46 Freq: Status: Active Protocol: Document 10/27/19 16:45 DCW (Rec: 10/27/19 16:59 DCW [id number]) Vestibular Assessment Positional Testing [place]-Hallpike Negative Left,Negative Right PT-OP-Q Treatments Start: 10/14/19 11:46 Freq: Status: Active Protocol: Document 10/13/19 16:55 DCW (Rec: 10/14/19 17:55 DCW [id number]) Self-Care/Home Management Treatment Education Patient Education Home Exercise Program,Safety Other Education Pt was educated on BPPV, expectations for treatment, and possible recurrence (BPPV has a ~50% recurrence rate in the five years following treatment). Canalithic Repositioning BPPV Treatment Yomi Affected Canal(s) Left Posterior Comments Pt complained of symptoms in the first and third position. PT-OP-T Assessment and Plan Start: 10/14/19 11:46 Freq: Status: Active Protocol: Document 10/27/19 16:45 DCW (Rec: 10/27/19 16:59 DCW [id number]) Physical Therapy Assessment Impairments Impairments Balance,Vestibular Goals Three Impairment Pt has vertigo with changing of position in bed Short Term Goal (STG) Pt to be able to perform bed mobility with no instances of dizziness. STG Duration Met Two Impairment Positive L [place]-Hallpike Short Term Goal (STG) Pt to have a negative [place]- Hallpike bilaterally STG Duration Met One Impairment Pt unable to perform proper self-Yomi Short Term Goal (STG) Pt to demonstrate knowledge of correct performance of self- Yomi maneuver STG Duration Met Progress Towards Goals Progress Towards Goals Goals Met Assessment Summary Assessment Pt positional testing completely negative, no indication of an remaining BPPV symptoms. Pt now knowledgeable in self-yomi and anatomy/pathology relating to BPPV. Pt will discharge at this time. Physical Therapy Plan Frequency and Duration Frequency of Treatment 1x/Week Duration of Treatment 6 weeks Plan of Care Start Date 10/13/19 Plan of Care End Date 11/24/19 Therapeutic Interventions Therapeutic Interventions Balance Training,Canalithic Repositioning,Vestibular Rehabilitation Discharge Physical Therapy Discharge Reasons Goals Met Next Visit Focus/Plan Next Note Type Discharge Summary
== END 2019-10-28 12:59 ==
LOC: PHYS 16:45
PROVIDERS: PCP Internal Medicine; Visit Provider Otolaryngology
DX: H81.12 Benign paroxysmal vertigo, left ear (principal)
CPT/HCPCS: 95992; 97140; 97161; 97535

== ENCOUNTER → 2020-01-01 11:19 | Outpatient (CLI) | payer OTHER, SELFPAY ==
[2020-01-01 17:31] LABS: Influenza A - CEPHEID Flu A NEGATIVE (NEGATIVE); Influenza B - CEPHEID Flu B NEGATIVE (NEGATIVE)
[2020-01-03 12:04] LABS: COVID19 Sendout Not Detected (Not Detected)
== END ==
PROVIDERS: PCP Internal Medicine; Visit Provider Physician Assistant
DX: R05 Cough (principal); R50.9 Fever, unspecified
CPT/HCPCS: 87502; 87635

== ENCOUNTER → 2020-03-07 09:13 | Outpatient (CLI) | payer OTHER, SELFPAY ==
[2020-03-07 10:09] LABS: Add Manual Diff / Slide Review NO; Basophils Absolute Auto 0 /uL (0-100); Basophils Percent Auto 1.2 % (0-2); Eosinophils Absolute Auto 100 /uL (0-450); Eosinophils Percent Auto 3.2 % (2-4); Hematocrit 39.9 % (36-46); Lymphocytes Absolute Auto 900 /uL (1100-4500); Mean Corpuscular HGB Conc 35.1 % (30-36); Mean Corpuscular Hemoglobin 33.2 PG (26-34); Mean Corpuscular Volume 94.5 fL (80-100); Monocytes Absolute Auto 300 /uL (0-900); Monocytes Percent Auto 8.5 % (3-14); Neutrophils Absolute Auto 2500 /uL (1500-7000); Neutrophils Percent Auto 65.1 % (50-75); Platelet Count 234 X10^3/uL (150-400); Red Blood Cell Count 4.22 X10^6/uL (4.0-5.2); Red Cell Distribution Width 13.5 % (11.6-14.8); White Blood Cell Count 3.9 X10^3/uL (4.5-11.0)
[2020-03-07 10:38] LABS: Alanine Aminotransferase 18 IU/L (<35); Albumin 4.4 g/dL (3.5-5.0); Albumin Globulin Ratio 1.7 (1.0-2.8); Alkaline Phosphatase 62 U/L (38-126); Aspartate Aminotransferase 29 IU/L (14-36); BUN Creatinine Ratio 22.1 (6-22); Blood Urea Nitrogen 17 mg/dL (7-17); Calcium 9.6 mg/dL (8.4-10.2); Carbon Dioxide 27 mmol/L (22-32); Chloride 104 mmol/L (98-107); Cholesterol 246 mg/dL (140-199); Estimated Glomerular Filt Rate > 60.0 mL/min (>60); Globulin 2.6 g/dL (1.7-4.1); Glucose 104 mg/dL (70-100); HDL Cholesterol 80 mg/dL (40-60); HEMOLYSIS < 15 (0-50); LDL Cholesterol Calculated 154 mg/dL (<100); Lactate Dehydrogenase 492 U/L (313-618); Potassium 4.3 mmol/L (3.4-5.1); Sodium 139 mmol/L (137-145); Triglycerides 62 mg/dL (35-150)
[2020-03-07 11:05] LABS: TSH w/ Reflex to FT4 1.36 uIU/mL (0.47-4.68)
== END ==
PROVIDERS: PCP Internal Medicine; Referring Provider Internal Medicine; Visit Provider Internal Medicine
DX: E78.2 Mixed hyperlipidemia (principal); E03.9 Hypothyroidism, unspecified
CPT/HCPCS: 36415; 80053; 80061; 83615; 84443; 85025

== ENCOUNTER → 2020-03-20 13:48 | Outpatient (CLI) | payer OTHER, SELFPAY | PROVIDERS: PCP Internal Medicine; Referring Provider Internal Medicine; Visit Provider Internal Medicine | DX: Z78.0 Asymptomatic menopausal state (principal) | CPT/HCPCS: 77080 ==

== ENCOUNTER → 2020-05-02 13:13 | Outpatient (CLI) | payer OTHER, SELFPAY ==
--- NOTE | 2020-05-02 | DI.CT.S_ITS ---
PROCEDURE: CT SOFT TISSUE NECK W CON INDICATIONS: Localized enlarged lymph nodes TECHNIQUE: After the administration of intravenous contrast, 3.0 mm axial sections acquired from the sella to the aortic arch. Additional oblique axial 3.0 mm sections acquired through the pharynx. 3 mm thick coronal and sagittal reformats were generated. For radiation dose reduction, the following was used: automated exposure control. COMPARISON: None. FINDINGS: Image quality: Excellent. Lymph nodes: No enlarged lymph nodes seen throughout the neck. Vessels: Visualized vasculature appears patent. Neck spaces: The oropharynx, nasopharynx, and pharynx demonstrate no mucosal lesions. The vocal cords, false vocal cords, pyriform sinuses, epiglottis, vallecula, and tongue base all appear normal. Extramucosal spaces appear unremarkable. Glands: The parotid and submandibular glands appear normal. Thyroid gland is normal in size and appearance. . Miscellaneous: Visualized brain and orbits appear normal. Lung apices appear clear. Superficial soft tissues appear normal. Bones: No suspicious bony lesions. Visualized sinuses and mastoids appear unremarkable. IMPRESSION: Unremarkable CT of the neck. There is no lymphadenopathy in the suprahyoid neck or submandibular regions of interest to correspond with the provided history. Dictated by: Leif Sood M.D. on 05/02/2020 at 15:28 Approved by: Leif Sood M.D. on 05/02/2020 at 15:31
== END ==
PROVIDERS: PCP Internal Medicine; Referring Provider Internal Medicine; Visit Provider Internal Medicine
DX: R59.0 Localized enlarged lymph nodes (principal)
CPT/HCPCS: 70491; Q9967

== ENCOUNTER → 2020-07-20 19:13 | Outpatient (ROUT) | payer OTHER, SELFPAY ==
[2020-07-20 20:05] LABS: Aspartate Aminotransferase 27 IU/L (14-36); Cholesterol 180 mg/dL (140-199); HDL Cholesterol 87 mg/dL (40-60); LDL Cholesterol Calculated 72 mg/dL (<100); Triglycerides 105 mg/dL (35-150)
== END ==
PROVIDERS: PCP Internal Medicine; Visit Provider Internal Medicine
DX: E78.2 Mixed hyperlipidemia (principal)
CPT/HCPCS: 80061; 84450

== ENCOUNTER 2020-09-29 15:45 | Emergency (ER) | payer OTHER, SELFPAY ==
[2020-09-29 15:48] VITALS: BP 144/76; PULSE 68; RESP 18; TEMP 36.9; O2SAT 98; BMI 26.1
[2020-09-29] MEDS: AMOXICILLIN/CLAV 875/125 MG 1 TAB PO (18:26)
[2020-09-29] MEDS: BUPIVACAINE 0.5% W/ EPI (PF) 30 ML VIAL 5 ML SUBCUT (18:27)
--- NOTE | 2020-09-29 18:36 | ED_ITS ---
HPI - Dental/Oral General Chief complaint: Dental/Oral Stated complaint: states, painful tooth Time Seen by Provider: 09/29/20 15:47 Source: patient Mode of arrival: Ambulatory Limitations: no limitations History of Present Illness HPI Narrative: 60-year-old female nonsmoker with history of hypothyroid presents with a chief complaint of gradually worsening dental pain over the past few days. She denies any facial swelling or drainage nor any fever, chills, nausea or vomiting. She denies any injury nor history of the same. She has a scheduled dental appointment in a few days MD Complaint: tooth pain Teeth map: 1. Onset (ago): day(s) Duration: constant Severity: moderate Relieving factors: nothing Exacerbating factors: chewing Context: history of dental caries Treatment prior to arrival: none Related Data Home Medications Medication Instructions Recorded Confirmed levothyroxine 50 mcg PO DAILY 07/13/19 07/13/19 Previous Rx's Medication Instructions Recorded amoxicillin-pot clavulanate 1 tab PO BID #20 tab 09/29/20 [Augmentin] ketorolac 10 mg PO Q6H PRN #14 tab 09/29/20 Allergies Allergy/AdvReac Type Severity Reaction Status Date / Time oxycodone Allergy Unknown Verified 09/29/20 15:48 Review of Systems Constitutional Constitutional: Denies chills, Denies fatigue, Denies fever(s), Denies frequent falls, Denies lethargy and Denies weakness Eyes Eyes: Denies change in vision, Denies eye discharge, Denies irritation and Denies loss of vision ENT Ears, Nose, Mouth, and Throat: Denies change in voice, Reports dental pain, Denies dizziness, Denies neck pain, Denies sore throat and Denies throat swelling Cardiovascular Cardiovascular: Denies chest pain, Denies irregular heart rhythm, Denies lightheadedness, Denies palpitations, Denies dyspnea, Denies dyspnea on exertion and Denies orthopnea Respiratory Respiratory: Denies cough, Denies dyspnea, Denies dyspnea on exertion and Denies wheezing Gastrointestinal Gastrointestinal: Denies abdominal pain, Denies change in bowel habits, Denies diarrhea, Denies nausea and Denies vomiting Musculoskeletal Musculoskeletal: Denies neck pain and Denies numbness Integumentary/Breasts Skin/Breast: Denies pruritus, Denies erythema, Denies rash and Denies wounds Neurologic Neurologic: Denies behavioral changes, Denies confusion, Denies dizziness, Denies frequent falls, Denies loss of vision, Denies numbness and Denies weakness Psychiatric Psychiatric: Denies anxiety, Denies behavioral changes, Denies confusion, Denies depression, Denies homicidal ideation and Denies suicidal ideation Endocrine Endocrine: Denies fatigue, Denies flushing and Denies palpitations Hematologic/Lymphatic Hematologic/Lymphatic: Denies easy bruising Allergic/Immunologic Allergic/Immunologic: Denies urticaria, Denies throat swelling and Denies wheezing Patient History Social History Smoking Status: Never smoker Smoking Status: Never smoker alcohol intake frequency: 0-2 drinks per day Substance Use Type: does not use Exam Narrative Exam Narrative: GEN: AOx3 and in mild distress EYES: Pupils are equal, round, and reactive to light and accommodation. Extraoccular muscles are intact bilaterally. There is no subconjunctival hemorrhage or exudate. FACIAL: no obvious swelling, redness, or warmth. No intraoral swelling or drainage. Dental pain to palp of R lower molar. CHEST: Lungs are clear to auscultation bilaterally and free of wheezes, rales, or rhonchi. Heart rate is regular rhythm, there are no murmurs, clicks, rubs, or gallops. There is no chest wall tenderness. ABD: Abdomen is soft and nontender. There is no guarding or rebound. Bowel sounds are normal in all 4 quadrants. There is no mass or organomegaly. EXT: Full painless ROM of all extremities with no loss of sensation or strength. SKIN: Warm, pink, and dry. No erythema or rash Initial Vital Signs Initial Vital Signs: Vital Signs Temperature 98.5 F 09/29/20 15:48 Pulse Rate 68 09/29/20 15:48 Respiratory Rate 18 09/29/20 15:48 Blood Pressure 144/76 H 09/29/20 15:48 Pulse Oximetry 98 09/29/20 15:48 Procedures Nerve Block Nerve Block 1: Time out performed: Yes Local Anesthetic: bupivacaine 0.25% and with epi Amount of anesthesia used (mL): 4 Side: right Intraoral Nerve Block: inferior alveolar Procedure Successful: No Patient Tolerated Procedure: Well Complications: none Course Orders Ordered: Discontinued Medications Amoxicillin/Clavulanate Potassium (Amoxicillin/Clav 875/125 Mg) 1 tab PO NOW ON E Stop: 09/29/20 18:12 Last Admin: 09/29/20 18:26 Dose: 1 tab Documented by: MARCELLE Bupivacaine HCl/Epinephrine Bitart (Bupivacaine 0.5% W/ Epi (Pf) 30 Ml Vial) 5 ml SUBCUT NOW ONE Stop: 09/29/20 18:12 Last Admin: 09/29/20 18:27 Dose: 5 ml Documented by: MARCELLE Vital Signs Vital signs: Vital Signs - 8 hr 09/29/20 15:48 Temperature 98.5 F Pulse Rate 68 Respiratory Rate 18 Blood Pressure 144/76 H Pulse Oximetry 98 Discharge Plan Departure Patient Disposition: Home Clinical Impression: Toothache, Dental abscess Instructions: Tooth Abscess, DI for Dental Pain Activity Restrictions/Additional Instructions: *You have been diagnosed with [ dental pain, possible early abscess ] *What to do: *Take medications as directed *Follow up with your primary care provider in 2-3 days, call for an appointment. Let them know you were seen in the Emergency Department and that we ask that you be seen in follow up *Return to ER if you should have any new, worsening or concerning symptoms Prescriptions: New amoxicillin-pot clavulanate [Augmentin] 875-125 mg tablet 1 tab PO BID Qty: 20 RF: 0 ketorolac 10 mg tablet 10 mg PO Q6H PRN (Reason: pain) Qty: 14 RF: 0 No Action levothyroxine 50 mcg Tablet 50 mcg PO DAILY RF: 0 Referrals: Rod Wang MD [Primary Care Provider] -
== END 2020-09-29 19:16 | disposition home or self-care (01) ==
PROVIDERS: Emergency Provider Emergency Medicine; PCP Internal Medicine
DX: K04.7 Periapical abscess without sinus (principal); K08.89 Other specified disorders of teeth and supporting structures; E03.9 Hypothyroidism, unspecified
CPT/HCPCS: 64450; 99281; 99283

== ENCOUNTER → 2021-02-09 18:56 | Outpatient (ROUT) | payer OTHER, SELFPAY ==
[2021-02-09 19:40] LABS: Aspartate Aminotransferase 33 IU/L (14-36); BUN Creatinine Ratio 20.3 (6-22); Blood Urea Nitrogen 13 mg/dL (7-17); Calcium 9.9 mg/dL (8.4-10.2); Carbon Dioxide 29 mmol/L (22-32); Chloride 102 mmol/L (98-107); Cholesterol 170 mg/dL (140-199); Estimated Glomerular Filt Rate > 60.0 mL/min (>60); Glucose 86 mg/dL (80-110); HDL Cholesterol 80 mg/dL (40-60); HEMOLYSIS < 15 (0-50); LDL Cholesterol Calculated 79 mg/dL (<100); Potassium 4.1 mmol/L (3.4-5.1); Sodium 140 mmol/L (137-145); Triglycerides 53 mg/dL (35-150)
[2021-02-09 19:55] LABS: Vitamin D 25 Hydroxy (D3) 63.8 ng/mL (30.0-100.0)
[2021-02-09 22:42] LABS: TSH w/ Reflex to FT4 1.17 uIU/mL (0.47-4.68)
== END ==
PROVIDERS: PCP Internal Medicine; Visit Provider Internal Medicine
DX: E78.2 Mixed hyperlipidemia (principal); E03.9 Hypothyroidism, unspecified
CPT/HCPCS: 80048; 80061; 82306; 84443; 84450

== ENCOUNTER 2022-05-18 09:03 | Emergency (ER) | payer OTHER, SELFPAY ==
[2022-05-18 09:22] VITALS: BP 236/113; PULSE 73; RESP 18; TEMP 36.6; O2SAT 97; BMI 27.4
--- NOTE | 2022-05-18 09:32 | DI.CT.S_ITS ---
PROCEDURE: CT ANGIO HEAD AND NECK INDICATIONS: HTN thunder clap headaches TECHNIQUE: Pre-contrast 4.5 mm thick sections acquired from the foramen magnum to the vertex. After the administration of intravenous contrast, 1 mm thick sections acquired from the aortic arch through the [place]. Post-contrast 4.5 mm thick sections then re-acquired from the foramen magnum to the vertex. 3-dimensional qanwofn-ajvqfrzpb-npcphaqxvf (MIP) and/or volume rendering reformats were acquired of the central intracranial vasculature and neck separately. For radiation dose reduction, the following was used: automated exposure control, adjustment of mA and/or kV according to patient size. COMPARISON: [facility], CT, CT SOFT TISSUE NECK W CON, 05/02/2020, 13:11. [facility], MR, MR HEAD/BRAIN WO CON, 07/13/2019, 14:04. [facility], CT, CT ABDOMEN PELVIS W CON, 05/18/2022, 9:56. [facility], CT, CT ANGIO HEAD AND NECK, 07/13/2019, 11:02. FINDINGS: Image quality: Mild streak artifact can be seen through the skull base. BRAIN: CSF spaces: Ventricles are normal in size and shape. Basal cisterns are patent. No extra-axial fluid collections. Brain: No midline shift. No intracranial bleeds or masses. [place]-white matter interface appears intact. Skull and face: Calvarium and facial bones appear intact, without suspicious lesions. Orbits appear normal. Sinuses: Sinuses and mastoids are clear. HEAD CT ANGIOGRAPHY: Anterior circulation: Intracranial internal carotid arteries demonstrate generalized atherosclerotic calcification and irregularity, with 20-30% narrowing seen on each side.. The flow within the paired anterior cerebral arteries is normal and symmetric. The flow within the middle cerebral arteries is normal and symmetric. The anterior communicating artery is seen. No aneurysms are seen. Posterior circulation: Visualized portions of the vertebral arteries demonstrate normal caliber, and join to form a normal appearing basilar artery. Flow within the posterior cerebral arteries is normal and symmetric. No aneurysms are seen. NECK CT ANGIOGRAPHY: Carotid system: The great vessels demonstrate a conventional anatomy as they arise from the aortic arch. The origins of the common carotid arteries appear patent. The common carotid arteries demonstrate normal caliber and courses. The bifurcation regions are both widely patent. The internal carotid arteries demonstrate normal calibers and courses. Posterior circulation: The origins of the vertebral arteries both appear widely patent. The more superior extracranial portions of both vertebral arteries also demonstrate normal courses and calibers. They join to form a normal appearing basilar artery. Soft tissues: Visualized neck soft tissues demonstrate no suspicious abnormalities. Bones: No suspicious bony lesions. Visualized cervical spine appears normally aligned. IMPRESSION: No acute intracranial hemorrhage is seen. No significant intracranial arterial abnormality is seen. No aneurysms are seen. Within the arteries of the neck, no hemodynamically significant stenosis can be seen. Any quantitative measurements of stenosis were performed using NASCET criteria. Dictated by: Dylon Burks M.D. on 05/18/2022 at 10:23 Approved by: Dylon Burks M.D. on 05/18/2022 at 10:27
--- NOTE | 2022-05-18 09:32 | DI.CT.S_ITS ---
PROCEDURE: CT ABDOMEN PELVIS W CON INDICATIONS: bloating lower leg edema TECHNIQUE: After the administration of IV contrast, axial sections were acquired from the lung bases to the pubic symphysis. Coronal and sagittal reformats were performed. For radiation dose reduction, the following was used: automated exposure control, adjustment of mA and/or kV according to patient size. COMPARISON: [facility], CT, CT ANGIO HEAD AND NECK, 07/13/2019, 11:02. [facility], CT, CT ANGIO HEAD AND NECK, 05/18/2022, 9:56. [facility], CT, CT SOFT TISSUE NECK W CON, 05/02/2020, 13:11. FINDINGS: Image quality: Excellent. Lung bases: Unremarkable. Heart: No significant findings. ABDOMEN: Liver: Unremarkable. Gallbladder: Unremarkable. Biliary ducts: Unremarkable. Pancreas: Unremarkable. Spleen: Unremarkable. Adrenal Glands: Unremarkable. Kidneys and Ureters: Unremarkable. Stomach and Bowel: Stomach, small bowel loops, and colon are unremarkable. A normal appendix is incidentally noted. Peritoneum: No abnormal intraperitoneal fluid. No free air. Ventral Wall: No hernia. Abdominal Nodes: Enlarged upper abdominal lymph nodes are seen, including a lymph node just posterior and to the right of the inferior vena cava, measuring 5.1 x 4.9 cm in greatest axial dimension. Enlarged aortocaval lymph nodes are seen, with the largest seen on series 16, image 34 measuring 2.1 x 1.6 cm. No frankly enlarged mesenteric lymph nodes are seen. Vessels: Aorta and inferior vena cava are normal in size. The lymph node mass is mildly narrow the inferior vena cava. PELVIS: Pelvic Organs: The uterus is atrophic. No adnexal masses are seen on either side. Bladder: Unremarkable. Pelvic Nodes: No enlarged lymph nodes. Miscellaneous: No inguinal hernias are seen. Bones: Age-appropriate bony degenerative changes are seen. IMPRESSION: Abnormally enlarged upper abdominal lymph nodes are seen, with mild mass effect upon the adjacent inferior vena cava. Please consider neoplasm versus lymphoma. Note: Case discussed by telephone with Dr. Genao at 10:37 a.m. on May 18, 2022. Dictated by: Dylon Burks M.D. on 05/18/2022 at 10:27 Approved by: Dylon Burks M.D. on 05/18/2022 at 10:37
--- NOTE | 2022-05-18 09:32 | ED.HA ---
HPI - Headache General Chief Complaint: Hypertension Stated Complaint: Thunder clap headache high BP Time Seen by Provider: 05/18/22 09:21 Mode of arrival: Ambulatory History of Present Illness HPI Narrative: Patient is a 61-year-old female history of hypothyroid presenting with right of symptoms. She says over the last month she has gotten 5 severe thunderclap like headaches. Today she got 1 while cooking breakfast. She says it is a 10/10 pain it lasts for about 10-15 minutes. She denies any blurry vision numbness tingling weakness nausea or vomiting. She was reading on line about them and decided she needed to be checked out. She does not take any blood thinner anticoagulation medication. She has also noticed over the last 2 months she has had increasing abdominal bloating swelling and now having lower extremity edema. She denies any night sweats fever or fatigued. She says her headache is now gone however she continues to note that she has significant hypertension with blood pressure in the 200s. She says that she tracks her blood pressure at it is normally 120-130. Does not take any blood pressure medication. She recently saw her primary care provider who ordered an outpatient MRI and outpatient abdominal CT. However nothing has been approved or scheduled. She reports weight gain due to be abdominal swelling Related Data Home Medications Medication Instructions Recorded Confirmed levothyroxine 50 mcg tablet 50 mcg PO DAILY 07/13/19 07/13/19 Previous Rx's Medication Instructions Recorded amoxicillin 875 mg-potassium 1 tab PO BID #20 tabs 09/29/20 clavulanate 125 mg tablet (Augmentin) ketorolac 10 mg tablet 10 mg PO Q6H PRN pain #14 tabs 09/29/20 Allergies Allergy/AdvReac Type Severity Reaction Status Date / Time oxycodone Allergy Unknown Verified 09/29/20 15:48 Review of Systems Review of Systems Narrative: GENERAL: Denies chills, fatigue, malaise, fever, sweats, travel HEENT: Denies sinus pain, ear pain, sore throat, difficulty swallowing, neck pain RESPIRATORY: Denies dyspnea, cough, wheezing, hemoptysis, sputum. CARDIOVASCULAR: Denies chest pain, palpitations, orthopnea, edema GASTROINTESTINAL: See HPI : Denies dysuria, frequency, incontinence, hematuria, urinary retention, flank pain. MUSCULOSKELETAL: Denies weakness, joint pain, or bony pain SKIN: No rash, no erythema, no pruritus NEUROLOGIC: See HPI PSYCHIATRIC: No concerning psychosocial issues. 12 point review of systems is negative except for those stated above and HPI Patient History Social History Smoking Status: Never smoker Smoking Status: Never smoker alcohol intake frequency: 0-2 drinks per day Substance Use Type: does not use Exam Initial Vital Signs Initial Vital Signs: Vital Signs Temperature 98 F 05/18/22 09:22 Pulse Rate 73 05/18/22 09:22 Respiratory Rate 18 05/18/22 09:22 Blood Pressure 236/113 H 05/18/22 09:22 Pulse Oximetry 97 05/18/22 09:22 Oxygen Delivery Method 05/18/22 09:22 GENERAL: Alert pleasant 61-year-old female no acute distress and in no acute distress. HEENT: Head atraumatic,EOMI, pupils reactive, face symmetric, moist mucous membranes CARDIOVASCULAR: Regular rate and rhythm without murmurs, rubs or gallops. RESPIRATORY: Breath sounds equal bilaterally, no wheezes rales or rhonchi. ABDOMEN: Soft, mild distention but soft no tenderness. EXTREMITIES: Normal range of motion, no clubbing. Extremity edema bilaterally. Nonpitting Neurovascularly intact NEUROLOGICAL: Alert and oriented x4.Normal gait and speech. Supervisor Looping strength equal bilaterally SKIN: Warm, dry, no laceration, no petechiae, no rashes or lesions. Course Orders Ordered: ED Orders 05/18/22 09:32 CT abdomen pelvis w con Stat CT angio head and neck Stat 05/18/22 09:33 EKG-12 Lead Stat 05/18/22 09:40 Complete Blood Count AUTO DIFF Stat Comprehensive Metabolic Panel Stat Lipase Stat Partial Thromboplastin Time Stat Prothrombin Time INR Stat Troponin & CK Cardiac Panel Stat Vital Signs Vital signs: Vital Signs - 8 hr 05/18/22 12:47 Pulse Rate 64 Respiratory Rate 18 Blood Pressure 160/115 H Pulse Oximetry 96 Oxygen Delivery Method Room Air MDM - Headache Lab Data Result diagrams: 05/18/22 09:40 05/18/22 09:40 Labs: Lab Results 05/18/22 05/18/22 05/18/22 Range/Units 09:40 09:40 09:40 WBC 7.9 (4.5-11.0) X10^3/uL RBC 4.81 (4.0-5.2) X10^6/uL Hgb 16.5 H (12.0-16.0) g/dL Hct 48.1 H (36-46) % MCV 99.9 (80-100) fL MCH 34.2 H (26-34) PG MCHC 34.3 (30-36) % RDW 15.4 H (11.6-14.8) % Plt Count 167 (150-400) X10^3/uL Neut % (Auto) 84.2 H (50-75) % Lymph % (Auto) 8.5 L (25-40) % [place] % (Auto) 6.8 (3-14) % Eos % (Auto) 0.3 L (2-4) % Baso % (Auto) 0.2 (0-2) % Neut # (Auto) 6600 (1244-3801) /uL Lymph # (Auto) 700 L (8937-1607) /uL [place] # (Auto) 500 (0-900) /uL Eos # (Auto) 0 (0-450) /uL Baso # (Auto) 0 (0-100) /uL RBC Morphology See below Macrocytosis 1+ H PT 10.1 (10.1-12.7) SECONDS INR 0.9 (0.9-1.3) APTT 29 (26-36) SECONDS Sodium 140 (137-145) mmol/L Potassium 3.3 L (3.4-5.1) mmol/L Chloride 106 (98-107) mmol/L Carbon Dioxide 31 (22-32) mmol/L BUN 14 (7-17) mg/dL Creatinine 0.65 (0.52-1.04) mg/dL Estimated GFR > 60 (>60) mL/min BUN/Creatinine Ratio 21.5 (6-22) Glucose 110 (80-110) mg/dL Calcium 8.6 (8.4-10.2) mg/dL Total Bilirubin 0.9 (0.2-1.3) mg/dL AST 33 (14-36) IU/L ALT 47 H (<35) IU/L Alkaline Phosphatase 75 (38-126) U/L Total Creatine Kinase 50 (30-135) U/L CK-MB (CK-2) TNP CK-MB (CK-2) Rel Index TNP Troponin I < 0.012 (0.01-0.034) ng/mL Total Protein 6.6 (6.3-8.2) g/dL Albumin 4.0 (3.5-5.0) g/dL Globulin 2.6 (1.7-4.1) g/dL Albumin/Globulin Ratio 1.5 (1.0-2.8) Lipase 85 (23-300) U/L Urine Dip Bedside Urine Glucose Negative Bedside Urine Bilirubin - Negative Bedside Urine Ketone - Negative Urine Specific [place] 1.01 Bedside Urine Occult Blood +/- Bedside Urine pH 6 Bedside Urine Protein - Negative Bedside Urine Urobilinogen +/- 1mg Bedside Urine Nitrite - Negative Bedside Urine Leukocytes - Negative Esterase Imaging Data CTA - brain/neck: Radiologist's Impression: CT Scan Report Signed Patient: Lianna Pierre MR#: [id number] : 1960 Acct:[id number] Age/Sex: 61 / F Date of Service: 05/18/22 Loc: ED Accession Number: [id number] ?? Procedure: CT angio head and neck Ordering Provider: Ariane Genao D.O. PROCEDURE:? CT ANGIO HEAD AND NECK ? INDICATIONS:? HTN thunder clap headaches ? TECHNIQUE:? Pre-contrast 4.5 mm thick sections acquired from the foramen magnum to the vertex.? After the administration of intravenous contrast, 1 mm thick sections acquired from the aortic arch through the [place] of [place].? Post-contrast 4.5 mm thick sections then re-acquired from the foramen magnum to the vertex.? 3-dimensional iqljdpm-wecafajjq-iepgnusxrr (MIP) and/or volume rendering reformats were acquired of the central intracranial vasculature and neck separately. For radiation dose reduction, the following was used:? automated exposure control, adjustment of mA and/or kV according to patient size.? ? COMPARISON:? [facility], CT, CT SOFT TISSUE NECK W CON, 05/02/2020, 13:11.? [facility], MR, MR HEAD/BRAIN WO CON, 07/13/2019, 14:04.? [facility], CT, CT ABDOMEN PELVIS W CON, 05/18/2022, 9:56.? [facility], CT, CT ANGIO HEAD AND NECK, 07/13/2019, 11:02. ? FINDINGS:? Image quality:? Mild streak artifact can be seen through the skull base. ? BRAIN:? CSF spaces:? Ventricles are normal in size and shape.? Basal cisterns are patent.? No extra-axial fluid collections.? ? Brain:? No midline shift.? No intracranial bleeds or masses.? [place]-white matter interface appears intact.? ? Skull and face:? Calvarium and facial bones appear intact, without suspicious lesions.? Orbits appear normal.? ? Sinuses:? Sinuses and mastoids are clear.? ? HEAD CT ANGIOGRAPHY:? Anterior circulation:? Intracranial internal carotid arteries demonstrate generalized atherosclerotic calcification and irregularity, with 20-30% narrowing seen on each side.. ?The flow within the paired anterior cerebral arteries is normal and symmetric.? The flow within the middle cerebral arteries is normal and symmetric.? The anterior communicating artery is seen.? No aneurysms are seen.? ? Posterior circulation:? Visualized portions of the vertebral arteries demonstrate normal caliber, and join to form a normal appearing basilar artery.? Flow within the posterior cerebral arteries is normal and symmetric.? No aneurysms are seen.? ? NECK CT ANGIOGRAPHY:? Carotid system:? The great vessels demonstrate a conventional anatomy as they arise from the aortic arch.? The origins of the common carotid arteries appear patent.? The common carotid arteries demonstrate normal caliber and courses.? The bifurcation regions are both widely patent.? The internal carotid arteries demonstrate normal calibers and courses.? ? Posterior circulation:? The origins of the vertebral arteries both appear widely patent.? The more superior extracranial portions of both vertebral arteries also demonstrate normal courses and calibers.? They join to form a normal appearing basilar artery.? ? Soft tissues:? Visualized neck soft tissues demonstrate no suspicious abnormalities.? ? Bones:? No suspicious bony lesions.? Visualized cervical spine appears normally aligned.? IMPRESSION:? No acute intracranial hemorrhage is seen.? ? No significant intracranial arterial abnormality is seen.? No aneurysms are seen. ? Within the arteries of the neck, no hemodynamically significant stenosis can be seen. ? ? Any quantitative measurements of stenosis were performed using NASCET criteria.? ? ? Dictated by: Dylon Burks M.D. on 05/18/2022 at 10:23 ? ? CT scan - abdomen/pelvis: Radiologist's Impression: [facility] [id number] CT Scan Report Signed Patient: Lianna Pierre MR#: [id number] : 1960 Acct:[id number] Age/Sex: 61 / F Date of Service: 05/18/22 Loc: ED Accession Number: [id number] ?? Procedure: CT abdomen pelvis w con Ordering Provider: Ariane Genao D.O. PROCEDURE:? CT ABDOMEN PELVIS W CON ? INDICATIONS:? bloating lower leg edema ? TECHNIQUE:? After the administration of IV contrast, axial sections were acquired from the lung bases to the pubic symphysis.? Coronal and sagittal reformats were performed.? For radiation dose reduction, the following was used:? automated exposure control, adjustment of mA and/or kV according to patient size. ? COMPARISON:? [facility], CT, CT ANGIO HEAD AND NECK, 07/13/2019, 11:02.? [facility], CT, CT ANGIO HEAD AND NECK, 05/18/2022, 9:56.? [facility], CT, CT SOFT TISSUE NECK W CON, 05/02/2020, 13:11. ? FINDINGS:? Image quality:? Excellent.? ? Lung bases:? Unremarkable.? ? Heart:? No significant findings. ? ? ABDOMEN: Liver:? Unremarkable.? ? Gallbladder:? Unremarkable.? ? Biliary ducts:? Unremarkable.? ? Pancreas:? Unremarkable.? ? Spleen:? Unremarkable.? ? Adrenal Glands:? Unremarkable.? ? Kidneys and Ureters:? Unremarkable.? ? ? Stomach and Bowel:? Stomach, small bowel loops, and colon are unremarkable.? A normal appendix is incidentally noted.? Peritoneum:? No abnormal intraperitoneal fluid.? No free air.? ? Ventral Wall: ? No hernia.? Abdominal Nodes:? Enlarged upper abdominal lymph nodes are seen, including a lymph node just posterior and to the right of the inferior vena cava, measuring 5.1 x 4.9 cm in greatest axial dimension.? Enlarged aortocaval lymph nodes are seen, with the largest seen on series 16, image 34 measuring 2.1 x 1.6 cm. No frankly enlarged mesenteric lymph nodes are seen.? Vessels:? Aorta and inferior vena cava are normal in size.? The lymph node mass is mildly narrow the inferior vena cava. ? PELVIS: Pelvic Organs:? The uterus is atrophic.? No adnexal masses are seen on either side.? Bladder:? Unremarkable.? ? Pelvic Nodes: No enlarged lymph nodes.? Miscellaneous: No inguinal hernias are seen. ? ? ? Bones:? Age-appropriate bony degenerative changes are seen.? ? ? IMPRESSION:? ? Abnormally enlarged upper abdominal lymph nodes are seen, with mild mass effect upon the adjacent inferior vena cava.? Please consider neoplasm versus lymphoma. ? ? Note: Case discussed by telephone with Dr. Genao at 10:37 a.m. on May 18, 2022. ? ? Dictated by: Dylon Burks M.D. on 05/18/2022 at 10:27 ? ? Approved by: Dylon Burks M.D. on 05/18/2022 at 10:37 ? ECG Data Interpretation: Normal sinus rhythm rate 57 MT interval 204 QRS [address] changes similar to previous EKG MDM Narrative Medical decision making narrative: Patient presents with thunder clap headache which is now resolved but noted to be quite hypertensive. fortunately CT does not show any aneurysm or intracranial hemorrhage and blood pressure has come down without any sort of intervention. She has no neurologic deficits. She has had increasing abdominal swelling and lower extremity and edema. CT does show enlarged lymph nodes concerning for neoplasm versus lymphoma with mild mass effect on the inferior vena cava. Spoke with radiologist who states that lymph nodes are probably easily accessible for biopsy. I have discussed all results with patient and her . It sounds as though her PCP is already involved and she can have close follow-up. She will call them 1st thing Friday morning for follow-up. Discharge Plan Departure Patient Disposition: Home Clinical Impression: Headache Instructions: DI for Lymph Node Biopsy Activity Restrictions/Additional Instructions: *You have been diagnosed with headache and abdominal lymph nodes *What to do: At this time you do need a lymph node biopsy to determine if you have cancer. Please see your PCP as soon as possible to help arrange this. You head CT today is negative. Please continue to monitor blood pressure at home *Continue to take medications as directed Tylenol or Motrin as directed if needed for pain *Follow up with your primary care provider in 2-3 days or call [phone] *Return to ER if you should have dizziness lightheadedness passing out of increased swelling severe headache persistent vomiting or any new, worsening or concerning symptoms Prescriptions: No Action levothyroxine 50 mcg Tablet 50 mcg PO DAILY amoxicillin-pot clavulanate [Augmentin] 875-125 mg tablet 1 tab PO BID Qty: 20 0RF ketorolac 10 mg tablet 10 mg PO Q6H PRN (Reason: pain) Qty: 14 0RF Referrals: Carl Bryson MD [Non-Staff] - Rod Wang MD [Primary Care Provider] - Visit Report Forms: Patient Portal/API
[2022-05-18 10:00] VITALS: BP 195/92; PULSE 64; RESP 20; O2SAT 98
[2022-05-18 10:00] LABS: Basophils Absolute Auto 0 /uL (0-100); Basophils Percent Auto 0.2 % (0-2); Eosinophils Absolute Auto 0 /uL (0-450); Eosinophils Percent Auto 0.3 % (2-4); Hematocrit 48.1 % (36-46); Hemoglobin 16.5 g/dL (12.0-16.0); Lymphocytes Absolute Auto 700 /uL (1100-4500); Lymphocytes Percent Auto 8.5 % (25-40); Mean Corpuscular HGB Conc 34.3 % (30-36); Mean Corpuscular Hemoglobin 34.2 PG (26-34); Mean Corpuscular Volume 99.9 fL (80-100); Monocytes Absolute Auto 500 /uL (0-900); Monocytes Percent Auto 6.8 % (3-14); Neutrophils Absolute Auto 6600 /uL (1500-7000); Neutrophils Percent Auto 84.2 % (50-75); Platelet Count 167 X10^3/uL (150-400); Red Blood Cell Count 4.81 X10^6/uL (4.0-5.2); Red Cell Distribution Width 15.4 % (11.6-14.8); White Blood Cell Count 7.9 X10^3/uL (4.5-11.0)
[2022-05-18 10:05] LABS: Add Manual Diff / Slide Review SLIDE REVIEW
[2022-05-18 10:12] LABS: INR 0.9 (0.9-1.3); Prothrombin Time 10.1 SECONDS (10.1-12.7)
[2022-05-18 10:15] LABS: Alanine Aminotransferase 47 IU/L (<35); Albumin Globulin Ratio 1.5 (1.0-2.8); Alkaline Phosphatase 75 U/L (38-126); Aspartate Aminotransferase 33 IU/L (14-36); BUN Creatinine Ratio 21.5 (6-22); Bilirubin Total 0.9 mg/dL (0.2-1.3); Blood Urea Nitrogen 14 mg/dL (7-17); Calcium 8.6 mg/dL (8.4-10.2); Carbon Dioxide 31 mmol/L (22-32); Chloride 106 mmol/L (98-107); Creatine Kinase 50 U/L (30-135); Estimated Glomerular Filt Rate > 60 mL/min (>60); Globulin 2.6 g/dL (1.7-4.1); Glucose 110 mg/dL (80-110); HEMOLYSIS < 15 (0-50); Lipase 85 U/L (23-300); PTT Partial Thromboplastin Tim 29 SECONDS (26-36); Potassium 3.3 mmol/L (3.4-5.1); Sodium 140 mmol/L (137-145); Total Protein 6.6 g/dL (6.3-8.2)
[2022-05-18 10:26] LABS: Troponin I < 0.012 ng/mL (0.01-0.034)
[2022-05-18 10:40] LABS: Macrocytosis 1+
[2022-05-18 12:47] VITALS: BP 160/115; PULSE 64; RESP 18; O2SAT 96
== END 2022-05-18 13:02 | disposition home or self-care (01) ==
PROVIDERS: Emergency Provider Emergency Medicine; PCP Internal Medicine
DX: R51.9 Headache, unspecified (principal); I10 Essential (primary) hypertension; R19.00 Intra-abdominal and pelvic swelling, mass and lump, unspecified site; R60.0 Localized edema
CPT/HCPCS: 36415; 70496; 70498; 74177; 80053; 81003; 82550; 83690; 84484; 85025; 85610; 85730; 93005; 93010; 99284; Q9967